=== PATIENT | male | born 1975 | race Two or more races ===

== ENCOUNTER 2019-12-17 08:16 | Emergency (ER) | payer BC ==
[2019-12-17 08:47] VITALS: BP 130/59
--- NOTE | 2019-12-17 10:17 | ER Document Report ---
ED General - General Chief Complaint: Anxiety Stated Complaint: ANXIETY/PANIC ATTACKS Notes: Patient is a 44-year-old male with a past medical history of anxiety and panic 10 years ago who presents to the emergency department the chief complaint of the same. He states 10 years ago he had issues with anxiety and panic. Was placed on medicines, antidepressant. States he is not had problems in 10 years. He reports no significant stressors in life. He states over the past several years he has gained a bunch of weight and has had issues with muscle spasms in his neck and back. He states today while driving to work he suddenly felt a wave come over him. He said he felt like the world was flat around him and things were crashing on top of him. He states he was in the center [place] traffic and did not know what to do. He eventually made his way to the shoulder and pulled over. States he could not calm himself down, try to call his and could not get a hold of her. He eventually made his way home and his who is in the medical profession was able to "talk me through it". He states that since that time he has felt some better but he is very nervous that it will occur again. He denies any specific trigger. States he called his primary doctor who advised they can see him tomorrow but if he needed to be seen sooner to come to the emergency department. Patient denied any chest pain or shortness of breath. No headaches or visual disturbances. No hallucinations, suicidal ideations or homicidal ideations. - Related Data Allergies/Adverse Reactions: No Known Allergies Allergy (Unverified 12/17/19 08:39) Past Medical History - Social History Smoking Status: Never Smoker Chew tobacco use (# tins/day): No Frequency of alcohol use: None Drug Abuse: None Family History: Reviewed & Not Pertinent Patient has homicidal ideation: No Review of Systems - Review of Systems Notes: Per HPI Physical Exam - Vital signs Vitals: Temp Pulse Resp BP Pulse Ox 98.4 F 59 L 16 130/59 H 100 12/17/19 08:21 12/17/19 08:21 12/17/19 08:21 12/17/19 08:21 12/17/19 08:21 - General General appearance: Appears well, Alert In distress: None - HEENT Head: Normocephalic, Atraumatic Eyes: Normal Pupils: PERRL - Respiratory Respiratory status: No respiratory distress Chest status: Nontender Breath sounds: Normal Chest palpation: Normal - Cardiovascular Rhythm: Regular Heart sounds: Normal auscultation - Neurological Neuro grossly intact: Yes Cognition: Normal Orientation: AAOx4 [place] Coma Scale Eye Opening: Spontaneous Pro Coma Scale Verbal: Oriented [place] Coma Scale Motor: Obeys Commands [place] Coma Scale Total: 15 Speech: Normal Cranial nerves: Normal 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 He has an appointment with his primary doctor tomorrow to investigate further into po tential medical causes. He is got no acute emergent condition that requires further investigation or care here in the emergency department today based on history and physical. You be given a short course of antianxiety medications in the event that he feels an attack starting to occur again. He will see his doctor tomorrow as scheduled and discussed. Counseled him regarding the importance of outpatient follow-up and advised that he return here or any ER immediately with any new, persistent or worsening symptoms. He verbalized understood and agreed. - Vital Signs Vital signs: Temp Pulse Resp BP Pulse Ox 98.4 F 59 L 16 130/59 H 100 12/17/19 08:21 12/17/19 08:21 12/17/19 08:21 12/17/19 08:21 12/17/19 08:21 Discharge - Discharge Clinical Impression: Anxiety Condition: Stable Disposition: HOME, SELF-CARE Instructions: Anxiety ([facility]) Additional Instructions: Follow-up with your doctor tomorrow as scheduled for continuing ongoing evaluation and management. Return here or any ER immediately with any new, persistent or worsening symptoms. Prescriptions: Alprazolam [Xanax 0.5 mg Tablet] 0.5 mg PO Q8 PRN #12 tab PRN Reason: Forms: Return to Work
== END 2019-12-17 10:25 | disposition home or self-care (01) ==
LOC: ER 08:16
DX: F41.9 Anxiety disorder, unspecified (principal); Z79.899 Other long term (current) drug therapy; R63.5 Abnormal weight gain; M62.830 Muscle spasm of back; M62.838 Other muscle spasm
CPT/HCPCS: 99283